=== PATIENT | female | born 1955 | race Two or more races ===

== ENCOUNTER 2017-05-16 08:45 | Inpatient (IN) | payer MEDICAID ==
[~2017-05-16] VITALS: Ht 154.9 cm; Wt 72.4 kg
[2017-05-16] MEDS ORDERED: SODIUM CHLORIDE 0.9% 1,000 ML IV ONE ×2 (08:56)
[2017-05-16] MEDS ORDERED: ONDANSETRON HCL 4 MG/2 ML VIAL IV ONE (09:00)
[2017-05-16] MEDS ORDERED: MORPHINE SULFATE 4 MG/ML SYRG IV ONE ×2 (09:00→12:00)
[2017-05-16 09:34] LABS: Basophils # (auto) 0 uL; Basophils % (auto) 0.3 % (0.0-2.0); CONDITION Y; Eosinophils # (auto) 0.1 uL; Eosinophils % (auto) 0.7 % (0.0-7.0); Hematocrit 46.9 % (36.0-46.0); Hemoglobin 15.5 g/dL (12.2-16.2); Lymphocytes # (auto) 1.5 uL; Mean Corpuscular Hemoglobin 28.6 pg (28.0-32.0); Mean Corpuscular Volume 86.8 fL (80.0-100.0); Mean Platelet Volume 8.9 fL (7.4-10.4); Monocytes # (auto) 0.8 uL; Monocytes % (auto) 10.2 % (0.0-12.0); Neutrophils # (auto) 5.2 uL; Neutrophils % (auto) 68.8 % (37.0-80.0); Platelet Count (auto) 407 10^3/uL (140-450); Red Cell Distribution Width 14.7 % (11.6-16.0); White Blood Cell 7.5 10^3/uL (4.4-10.8)
[2017-05-16 09:53] LABS: INR 1.01 (0.9-1.15); Partial Thromboplastin Time 26.8 sec (22.64-33.71)
[2017-05-16 09:57] LABS: Albumin 3.1 g/dL (3.4-5.0); BUN/Creatinine Ratio 12.9; Bilirubin, Total 0.6 mg/dL (0.2-1.0); Calcium 8.8 mg/dL (8.5-10.1); Magnesium 2.4 mg/dL (1.6-2.6); Potassium 4.7 mmol/L (3.5-5.1); Total Protein 7.5 g/dL (6.4-8.2)
[2017-05-16] MEDS ORDERED: CARVEDILOL 12.5 MG TAB PO ONE (10:15)
[2017-05-16] MEDS ORDERED: METOPROLOL TARTRATE 1MG/1ML-5ML VIAL IV ONE (11:15)
[2017-05-16] MEDS ORDERED: SODIUM CHLORIDE 0.9% 1,000 ML IV SCH (11:32)
[2017-05-16] MEDS ORDERED: NITROGLYCERIN 0.4 MG SL TAB SL PRN (11:45)
[2017-05-16] MEDS ORDERED: FAMOTIDINE (10MG/ML) 2ML VL IV SCH (11:45)
[2017-05-16] MEDS ORDERED: LORazepam 2MG/ML-1ML VIAL IV PRN (11:45)
[2017-05-16] MEDS ORDERED: HYDROcodone-ACET 5/325MG TAB PO PRN (11:45)
[2017-05-16] MEDS ORDERED: TEMAZEPAM 15 MG CAP PO PRN (11:45)
[2017-05-16] MEDS ORDERED: MILK OF MAGNESIA 30ML SUSP PO PRN (11:45)
[2017-05-16] MEDS ORDERED: MORPHINE SULF INJ 2 MG/ML SYRINGE 1ML IV PRN ×2 (11:45)
[2017-05-16] MEDS ORDERED: ACETAMINOPHEN 500 MG TAB PO PRN (11:45)
[2017-05-16] MEDS ORDERED: MORPHINE SULFATE 4 MG/ML SYRG IV PRN ×2 (11:55)
[2017-05-16] MEDS ORDERED: ALBUTEROL SULF 2.5 MG/0.5ML(0.5%) NEB SOLN NEB PRN (12:00)
[2017-05-16] MEDS ORDERED: MORPHINE SULF INJ 2 MG/ML SYRINGE 1ML IV ONE (12:00)
[2017-05-16] MEDS ORDERED: METOPROLOL TARTRATE 25 MG TAB PO ONE (12:15)
[2017-05-16] MEDS ORDERED: SODIUM CHLORIDE 0.9 % NEB SOLN 3ML NEB ONE (12:22)
[2017-05-16] MEDS: MORPHINE SULFATE 4 MG/ML SYRG IV PRN ×2 (14:12→18:51)
[2017-05-16] MEDS: ONDANSETRON HCL 4 MG/2 ML VIAL IV PRN ×2 (14:14→18:51)
[2017-05-16 15:54] LABS: Urine Bilirubin Negative (Negative); Urine Color Yellow (Yellow); Urine Glucose Normal (Normal); Urine Ketone Negative (Negative); Urine Nitrite Negative (Negative); Urine RBC 2 /hpf (0 - 4); Urine Squamous Epithelial Cell FEW /hpf (<5); Urine Urobilinogen Normal (Negative)
[2017-05-16 15:55] LABS: Urine Blood 1+ /uL (Negative)
[2017-05-16 17:25] VITALS: BP 106/73
[2017-05-16 18:09] LABS: B-Type Natriuretic Peptide 848.98 pg/mL (0-100)
[2017-05-16 18:13] LABS: Temperature: 23.5 C (20.0-25.0)
[2017-05-16] MEDS: METOPROLOL TARTRATE 1MG/1ML-5ML VIAL IV SCH ×2 (18:43→23:06)
[2017-05-16] MEDS ORDERED: CARV12.544 PO (19:00)
[2017-05-16] MEDS ORDERED: IBUP800T24 PO (19:00)
[2017-05-16] MEDS ORDERED: DIGO1TAB35 PO (19:00)
[2017-05-16] MEDS: ALBUTEROL SULF 2.5 MG/0.5ML(0.5%) NEB SOLN NEB SCH (19:36)
[2017-05-16 20:00] VITALS: BP 105/62
[2017-05-16] MEDS: ENOXAPARIN SOD 80 MG/0.8ML SYRINGE SC SCH ×2 (21:09→21:38)
[2017-05-16] MEDS: PANTOPRAZOLE 40 MG TAB PO SCH (21:38)
[2017-05-16] MEDS: SOD CHL 0.9%/ KCL 20MEQ 1,000 ML IV SCH (21:38)
[2017-05-16 22:00] VITALS: BP_SYST 107; BP_SYST 144; BP_DIAS 69; BP_DIAS 70
[2017-05-16] MEDS ORDERED: METOPROLOL TARTRATE 25 MG TAB PO SCH (22:00)
[2017-05-17] VITALS (7 sets, daily range): BP systolic 100–130; BP diastolic 63–85
[2017-05-17] MEDS: DIGOXIN (250MCG/ML) 2 ML AMPULE IV ONE ×2 (03:00→03:13)
[2017-05-17] MEDS: SOD CHL 0.9%/ KCL 20MEQ 1,000 ML IV SCH (03:31)
[2017-05-17] MEDS: METOPROLOL TARTRATE 1MG/1ML-5ML VIAL IV SCH ×3 (05:22→23:34)
[2017-05-17 05:40] LABS: Basophils # (auto) 0 uL; Basophils % (auto) 0.3 % (0.0-2.0); CONDITION Y; Eosinophils # (auto) 0 uL; Hematocrit 41.7 % (36.0-46.0); Hemoglobin 13.7 g/dL (12.2-16.2); Lymphocytes # (auto) 1.7 uL; Lymphocytes % (auto) 12.6 % (10.0-50.0); Mean Corpuscular Hemoglobin 29.1 pg (28.0-32.0); Mean Corpuscular Hgb Conc. 32.8 g/dL (32.0-36.0); Mean Corpuscular Volume 88.8 fL (80.0-100.0); Mean Platelet Volume 9.5 fL (7.4-10.4); Monocytes # (auto) 1.4 uL; Monocytes % (auto) 10.8 % (0.0-12.0); Neutrophils % (auto) 76.3 % (37.0-80.0); Platelet Count (auto) 362 10^3/uL (140-450); Red Cell Distribution Width 14.7 % (11.6-16.0); White Blood Cell 13.1 10^3/uL (4.4-10.8)
[2017-05-17 06:02] LABS: Albumin 2.8 g/dL (3.4-5.0); Calcium 8.5 mg/dL (8.5-10.1); Potassium 5.3 mmol/L (3.5-5.1)
[2017-05-17 06:04] LABS: BUN/Creatinine Ratio 13.8
[2017-05-17] MEDS: MORPHINE SULFATE 4 MG/ML SYRG IV PRN (06:22)
[2017-05-17 06:26] LABS: Bilirubin, Total 0.7 mg/dL (0.2-1.0); Total Protein 6.9 g/dL (6.4-8.2)
[2017-05-17] MEDS: ALBUTEROL SULF 2.5 MG/0.5ML(0.5%) NEB SOLN NEB SCH ×4 (06:39→23:45)
[2017-05-17] MEDS ORDERED: DIGOXIN (250MCG/ML) 2 ML AMPULE IV SCH (08:15)
[2017-05-17] MEDS ORDERED: DIGOXIN (250MCG/ML) 2 ML AMPULE IV ONE (08:15)
[2017-05-17] MEDS ORDERED: FUROSEMIDE 40 MG/4 ML VIAL IV ONE (08:15)
[2017-05-17] MEDS: ENOXAPARIN SOD 80 MG/0.8ML SYRINGE SC SCH (09:57)
[2017-05-17] MEDS: PANTOPRAZOLE 40 MG TAB PO SCH (09:57)
[2017-05-17] MEDS ORDERED: ENOXAPARIN SOD 40 MG/0.4 ML SYRINGE SC SCH (10:00)
[2017-05-17] MEDS ORDERED: FUROSEMIDE 20 MG TAB PO SCH (10:00)
[2017-05-17] MEDS ORDERED: METOPROLOL TARTRATE 25 MG TAB PO SCH (10:00)
[2017-05-17] MEDS ORDERED: ENOXAPARIN SOD 30 MG/0.3 ML SYRINGE SC SCH (10:00)
[2017-05-17] MEDS ORDERED: ENOXAPARIN SOD 60 MG/0.6 ML SYRINGE SC ONE (11:45)
[2017-05-17] MEDS: DIGOXIN (250MCG/ML) 2 ML AMPULE IV SCH ×2 (12:59→20:14)
[2017-05-17] MEDS ORDERED: AMIODARONE HCL (50 MG/ ML) 3 ML VIAL IV ONE (13:56)
[2017-05-17] MEDS ORDERED: AMIODARONE HCL 900 MG in DEXTROSE 500 ML IV SCH (14:11)
[2017-05-17] MEDS ORDERED: AMIODARONE HCL 150 MG in D5W 5% 100 ML IV ONE (14:15)
[2017-05-17] MEDS ORDERED: FUROSEMIDE 40 MG/4 ML VIAL IV STA (14:45)
[2017-05-17] MEDS ORDERED: FUROSEMIDE 40 MG/4 ML VIAL ONE (14:52)
[2017-05-17 15:04] LABS: Allen Test Yes; Base Excess -5.5 mmol/L (-2.0-2.0); Blood COHb 0.5 % (0.5-1.5); Blood MetHb 0.1 % (0.0-1.5); HCO3 19.7 mmol/L (22-26.0); MODE MASK - NRB; O2Hb 97.4 % (94.0-97.0); PCO2 37.8 mmHg (35.0-45.0); PCO2(T) 37.8 mmHg (35.0-45.0); PO2 137.3 mmHg (80.0-100.0); PO2(T) 137.3 mmHg (80.0-100.0); Room 0263D; Sample Type Arterial; pH 7.335 (7.350-7.450)
[2017-05-17] MEDS ORDERED: ASPirin-EC 81 mg tab PO ONE (19:00)
[2017-05-17] MEDS: SODIUM CHLORIDE 0.9% 1,000 ML IV SCH (19:00)
[2017-05-17] MEDS ORDERED: LABETALOL HCL 5 MG/ML 4ML SYRINGE IV PRN (19:00)
[2017-05-17] MEDS: ATORVASTATIN 20 MG TAB PO SCH (19:13)
[2017-05-17] MEDS: ASPirin 300 MG RECTAL SUPP PR SCH (20:13)
[2017-05-17] MEDS: AMIODARONE HCL 900 MG in DEXTROSE 500 ML IV SCH (20:14)
[2017-05-17] MEDS: PANTOPRAZOLE SODIUM 40 MG/10 ML VIAL IV SCH (20:18)
[2017-05-17 20:27] LABS: Cholesterol 173 mg/dL (< 200); HDL Cholesterol 37 mg/dL (40-59); LDL Cholesterol 114 mg/dL (< 100); Triglycerides 121 mg/dL (< 150)
[2017-05-17] MEDS ORDERED: ENOXAPARIN SOD 80 MG/0.8ML SYRINGE SC SCH (22:00)
[2017-05-18] VITALS: BP 132/79
[2017-05-18 04:00] VITALS: BP 116/58
[2017-05-18] MEDS: METOPROLOL TARTRATE 1MG/1ML-5ML VIAL IV SCH ×4 (05:11→23:28)
[2017-05-18] MEDS: ALBUTEROL SULF 2.5 MG/0.5ML(0.5%) NEB SOLN NEB SCH ×3 (06:24→19:30)
[2017-05-18] MEDS ORDERED: ASPirin-EC 81 mg tab PO SCH (10:00)
[2017-05-18] MEDS ORDERED: DIGOXIN 0.25 MG TAB PO SCH (10:00)
[2017-05-18] MEDS: PANTOPRAZOLE SODIUM 40 MG/10 ML VIAL IV SCH ×2 (10:11→21:37)
[2017-05-18] MEDS: ASPirin 300 MG RECTAL SUPP PR SCH (10:11)
[2017-05-18 12:00] VITALS: BP 123/60
[2017-05-18] MEDS ORDERED: LABETALOL HCL 5 MG/ML 4ML SYRINGE IV PRN (13:15)
[2017-05-18 15:52] VITALS: BP 127/65
[2017-05-18] MEDS: SODIUM CHLORIDE 0.9% 1,000 ML IV SCH (16:15)
[2017-05-18 20:00] VITALS: BP 130/63
[2017-05-18] MEDS: AMIODARONE HCL 900 MG in DEXTROSE 500 ML IV SCH (20:11)
[2017-05-18] MEDS: ATORVASTATIN 20 MG TAB PO SCH (21:38)
[2017-05-18 23:35] VITALS: BP 142/77
[2017-05-19] VITALS (29 sets, daily range): BP systolic 98–171; BP diastolic 36–129
[2017-05-19] MEDS: ALBUTEROL SULF 2.5 MG/0.5ML(0.5%) NEB SOLN NEB SCH ×4 (00:50→18:48)
[2017-05-19] MEDS: METOPROLOL TARTRATE 1MG/1ML-5ML VIAL IV SCH ×3 (06:05→18:00)
[2017-05-19] MEDS: PANTOPRAZOLE SODIUM 40 MG/10 ML VIAL IV SCH ×2 (10:00→21:50)
[2017-05-19] MEDS: ASPirin 300 MG RECTAL SUPP PR SCH (10:00)
[2017-05-19] MEDS: SODIUM CHLORIDE 0.9% 1,000 ML IV SCH (10:58)
[2017-05-19] MEDS ORDERED: FUROSEMIDE 20 MG/2 ML VIAL IV ONE (12:00)
[2017-05-19] MEDS ORDERED: DIGOXIN (250MCG/ML) 2 ML AMPULE IV ONE (12:00)
[2017-05-19] MEDS ORDERED: DEXAMETHASONE SOD PHOS 10MG/1ML VIAL INJ IV ONE (13:15)
[2017-05-19] MEDS ORDERED: MIDAZOLAM HCL 1MG/1ML-2 ML VIAL ONE ×3 (13:22→13:35)
[2017-05-19] MEDS ORDERED: MIDAZOLAM DRIP 50 mg/50mL NS 50 ML IV ONE (13:34)
[2017-05-19] MEDS ORDERED: NOREPINEPHRINE BITARTRATE 250 ML IV ONE (13:57)
[2017-05-19] MEDS ORDERED: PROPOFOL 100 ML IV SCH (13:59)
[2017-05-19] MEDS ORDERED: MIDAZOLAM DRIP 50 mg/50mL NS 50 ML IV SCH (13:59)
[2017-05-19] MEDS ORDERED: NOREPINEPHRINE BITARTRATE 250 ML IV SCH (13:59)
[2017-05-19] MEDS: LEVETIRACETAM INJ 500 MG in SODIUM CHL 0.9% 100 ML IV SCH ×2 (14:39→22:00)
[2017-05-19 15:04] LABS: Base Excess 0.2 mmol/L (-2.0-2.0); Blood 02Sat 98.7 % (96-100); Blood COHb 0.1 % (0.5-1.5); Blood MetHb 0.3 % (0.0-1.5); HCO3 23.4 mmol/L (22-26.0); HHb 1.3 % (0.0-5.0); MODE VENT - A/C; O2Hb 98.3 % (94.0-97.0); PCO2 33.8 mmHg (35.0-45.0); PCO2(T) 33.8 mmHg (35.0-45.0); PO2 198.1 mmHg (80.0-100.0); PO2(T) 198.1 mmHg (80.0-100.0); Room 0263D; Sample Type Arterial; pH 7.459 (7.350-7.450)
[2017-05-19] MEDS: DEXAMETHASONE SOD PHOS 4 MG/1ML SDV INJ IV SCH (17:30)
[2017-05-19 18:12] LABS: Basophils # (auto) 0 uL; Basophils % (auto) 0.1 % (0.0-2.0); CONDITION Y; Eosinophils # (auto) 0 uL; Hematocrit 45.4 % (36.0-46.0); Hemoglobin 15.1 g/dL (12.2-16.2); Lymphocytes # (auto) 0.6 uL; Lymphocytes % (auto) 6.3 % (10.0-50.0); Mean Corpuscular Hemoglobin 29.1 pg (28.0-32.0); Mean Corpuscular Hgb Conc. 33.3 g/dL (32.0-36.0); Mean Corpuscular Volume 87.4 fL (80.0-100.0); Mean Platelet Volume 8.7 fL (7.4-10.4); Monocytes # (auto) 0.4 uL; Monocytes % (auto) 4.2 % (0.0-12.0); Neutrophils % (auto) 89.4 % (37.0-80.0); Platelet Count (auto) 353 10^3/uL (140-450); Red Cell Distribution Width 14.4 % (11.6-16.0); White Blood Cell 8.9 10^3/uL (4.4-10.8)
[2017-05-19 18:31] LABS: Albumin 2.2 g/dL (3.4-5.0); BUN/Creatinine Ratio 19.5; Bilirubin, Total 0.7 mg/dL (0.2-1.0); Calcium 8.6 mg/dL (8.5-10.1); Magnesium 2.1 mg/dL (1.6-2.6); Potassium 3.8 mmol/L (3.5-5.1); Total Protein 6.8 g/dL (6.4-8.2)
[2017-05-19] MEDS: AMIODARONE HCL 900 MG in DEXTROSE 500 ML IV SCH (20:11)
[2017-05-19] MEDS: SODIUM CHL 3% 500 ML BAG IN SCH ×3 (21:00→23:03)
[2017-05-19] MEDS: ATORVASTATIN 20 MG TAB PO SCH (21:50)
[2017-05-20] VITALS (10 sets, daily range): BP systolic 115–171; BP diastolic 52–101
[2017-05-20] MEDS: SODIUM CHL 3% 500 ML BAG IN SCH ×3 (00:14→02:13)
[2017-05-20] MEDS: DEXAMETHASONE SOD PHOS 4 MG/1ML SDV INJ IV SCH (00:21)
[2017-05-20] MEDS: ALBUTEROL SULF 2.5 MG/0.5ML(0.5%) NEB SOLN NEB SCH (00:21)
[2017-05-20] MEDS: METOPROLOL TARTRATE 1MG/1ML-5ML VIAL IV SCH ×2 (00:25)
[2017-05-20] MEDS ORDERED: AMIODARONE HCL 900 MG IV ONE (01:23)
[2017-05-20] MEDS ORDERED: DIGOXIN (250MCG/ML) 2 ML AMPULE IV SCH (10:00)
[2017-05-20] MEDS ORDERED: FUROSEMIDE 20 MG/2 ML VIAL IV SCH (10:00)
== END 2017-05-20 02:06 | disposition short-term general hospital (02) | DRG 45 ==
LOC: ER 08:52 → TELE 08:53 → TELE-E-ADS 15:53 → TELE-WESTW 18:29 → DOU IN ICU 05-17 12:14 → ICU WEST 05-19 16:05
PROVIDERS: ADMIT Nurse Practitioner Family; ATTEND Internal Medicine Pulmonary Disease
PROC: 5A1935Z Respiratory Ventilation, Less than 24 Consecutive Hours (ICD-10-PCS; principal; 2017-05-19)
PROC: 0BH17EZ Insertion of Endotracheal Airway into Trachea, Via Natural or Artificial Opening (ICD-10-PCS; 2017-05-19)
DX: I63.9 Cerebral infarction, unspecified (principal); I50.43 Acute on chronic combined systolic (congestive) and diastolic (congestive) heart failure; G81.91 Hemiplegia, unspecified affecting right dominant side; I48.1 Persistent atrial fibrillation; J44.9 Chronic obstructive pulmonary disease, unspecified; F17.210 Nicotine dependence, cigarettes, uncomplicated; I11.0 Hypertensive heart disease with heart failure; K44.9 Diaphragmatic hernia without obstruction or gangrene; I70.0 Atherosclerosis of aorta; J98.11 Atelectasis; N81.10 Cystocele, unspecified; R29.810 Facial weakness; Z79.01 Long term (current) use of anticoagulants; Z79.82 Long term (current) use of aspirin; Z79.899 Other long term (current) drug therapy; I25.2 Old myocardial infarction; Z80.0 Family history of malignant neoplasm of digestive organs; Z82.49 Family history of ischemic heart disease and other diseases of the circulatory system; Z83.3 Family history of diabetes mellitus
CPT/HCPCS: 36415; 36600; 70450; 71010; 74176; 80053; 80061; 81001; 82150; 82805; 82962; 83605; 83690; 83735; 83880; 84484; 85025; 85610; 85652; 85730; 87040; 87081; 93005; 93306; 93886; 94002; 94640; 96361; 96374; 96375; 96376; C9113; J1100; J2250; J2405; J2704; J3490; J7060